=== PATIENT | female | born 1990 | race Caucasian/White ===

== ENCOUNTER 2017-03-15 01:21 | Emergency (ER) | payer OTHER ==
[~2017-03-15] VITALS: Ht 175.3 cm; Wt 117.9 kg
[2017-03-15] MEDS ORDERED: MOTRIN800 MG PO (03:24)
[2017-03-15 03:50] VITALS: BP 143/85
== END 2017-03-15 03:50 | disposition home or self-care (01) ==
LOC: EME 01:21
DX: S63.91XA Sprain of unspecified part of right wrist and hand, initial encounter (principal); J45.909 Unspecified asthma, uncomplicated; F17.200 Nicotine dependence, unspecified, uncomplicated; Y92.410 Unspecified street and highway as the place of occurrence of the external cause; Z88.0 Allergy status to penicillin
CPT/HCPCS: 73130; 99281; 99284